=== PATIENT | male | born 1945 | race Caucasian/White ===

== ENCOUNTER 2020-06-22 10:40 | Emergency (ER) | payer MEDICARE, SELFPAY ==
--- NOTE | ~2020-06-22 | XR_ITS ---
EXAMINATION: XR chest 1V portable DATE: 06/22/2020 11:10 INDICATION: Chest pain. TECHNIQUE: A single frontal view of the chest was obtained. COMPARISON: Chest 2 views 10/16/2017, CT abdomen and pelvis 10/16/2017 FINDINGS: Sensitivity is decreased by obesity. Calcified pulmonary nodules and calcified hilar lymph nodes are consistent with old granulomatous disease. No pleural effusion or pneumothorax. Cardiomegal y is noted. There is a prominent left paracardial fat pad. IMPRESSION: 1. Cardiomegaly. Reviewed, dictated and finalized at location A. IMPRESSION: 1. Cardiomegaly.
--- NOTE | 2020-06-22 10:49 | ECG_ITS ---
Measurements Intervals [place] Rate: 116 P: MA: 0 QRS: -39 QRSD: 109 T: 124 QT: 324 QTc: 451 Interpretive Statements ATRIAL FIBRILLATION WITH RAPID VENTRICULAR RESPONSE VENTRICULAR PREMATURE COMPLEXES LEFT AXIS DEVIATION DELAYED PRECORDIAL R/S TRANSITION ST-T WAVE ABNORMALITY IN HIGH LATERAL LEADS- CONSIDER ISCHEMIA BASELINE WANDER- AVR, AVL, AVF ABNORMAL ECG Electronically Signed On 06-22-2020 11:40:29 CDT by Edward Lewis D.O.
[2020-06-22 10:51] VITALS: BP 165/98; PULSE 121; RESP 23; TEMP 36.7; O2SAT 96
--- NOTE | 2020-06-22 10:51 | ED.ARRPALP ---
HPI - Arrhythmia/Palpitations General Chief Complaint: Arrhythmia/Palpitations Stated Complaint: IRREGULAR HEART BEAT Time Seen by Provider: 06/22/20 10:43 Source: RN notes reviewed History of Present Illness HPI narrative: Patient presents emergency department from home for arrhythmia. Patient was being seen by his senior oracle soa developer Dr. Quiroga this morning for a regular checkup when it was noted that his heart rate was irregular and he was referred to the ER for further evaluation. Patient states he cannot feel his heart rate being irregular and denies any chest pain or shortness of breath. He denies any history of atrial fibrillation denies any fevers or chills chest pain shortness of breath abdominal pain or any other symptoms Related Data Home Medications Medication Instructions Recorded Confirmed aspirin 81 mg tablet,delayed 81 mg PO DAILY 12/01/19 release cholecalciferol (vitamin D3) 25 1,000 unit PO DAILY 12/01/19 mcg (1,000 unit) capsule glimepiride 4 mg tablet 4 mg PO QAM tablet 12/01/19 insulin glargine [Lantus Solostar 15 unit SUB-Q QPM 06/22/20 U-100 Insulin] saxagliptin [Onglyza] 2.5 mg PO DAILY 06/22/20 Allergies Allergy/AdvReac Type Severity Reaction Status Date / Time No Known Allergies Allergy Verified 06/22/20 10:55 Review of Systems Review of Systems: Narrative: Gen.: Denies fevers or chills ENT: Denies congestion Respiratory: Denies shortness of breath or cough CV: See HPI GI: Denies abdominal pain nausea, emesis or diarrhea Musculoskeletal: Denies back pain or muscle pain Neuro: Denies numbness, tingling, weakness or focal weakness Skin: Denies rash Except as documented, all other systems reviewed and negative [facility] Past Medical History Medical History (Updated 06/22/20 @ 12:09 by Feliciano Covarrubias DO) Essential (primary) hypertension Type 2 diabetes mellitus without complications Social History Social History Smoking status: Never smoker Second hand tobacco smoke exposure: No Alcohol intake: current Gender identity (if verbalized by the patient): Male Exam Narrative: Exam Narrative: APPEARANCE: No acute distress, nontoxic, resting in bed EYES: EOMI HEENT: Normocephalic, atraumatic, OMM RESPIRATORY: No respiratory distress Clear to auscultation bilaterally with no rhonchi wheezing or rales. CARDIOVASCULAR: Irregular irregular without murmurs rubs or gallops. ABDOMINAL: Soft, nontender, nondistended, no rebound or guarding MUSCULOSKELETAl: Moves all extremities. No clubbing, cyanosis or edema. NEURO: Awake and alert. Following commands, speech normal, no focal deficits SKIN:: Warm, dry. No rashes lesions or abrasions PSYCHIATRIC: Normal affect/mood, Course Course Emergency Course: Patient is remained rate controlled in the ED. Currently is on metoprolol daily Called and discussed with Dr Mckeon presentation work-up. Request patient be started on Eliquis 2.5 mg twice daily agrees with plan for discharge with follow-up as an outpatient Discussed with Dr. Quiroga presentation work-up. States creatinine is at baseline increased plan to discharge Discussed with patient results of workup and diagnosis. Discussed need for follow-up with primary care, proper use of medication, and reasons to return to the emergency department. Patient understands and agrees to current treatment plan Vital Signs Vital signs: Vital Signs Temperature 98.1 F 06/22/20 10:51 Pulse Rate 121 H 06/22/20 10:51 Respiratory Rate 23 H 06/22/20 10:51 Blood Pressure 165/98 H 06/22/20 10:51 Pulse Oximetry 96 06/22/20 10:51 Temperature 98.1 F 06/22/20 10:51 Pulse Rate 121 H 06/22/20 10:51 Respiratory Rate 23 H 06/22/20 10:51 Blood Pressure 165/98 H 06/22/20 10:51 Pulse Oximetry 96 06/22/20 10:51 MDM - Arrhythmia/Palpitations Lab Data Result diagrams: 06/22/20 10:55 06/22/20 10:55
[2020-06-22 11:03] LABS: Basophils Absolute Auto 0.1 K/mm3 (0.0-0.1); Basophils Percent Auto 0.6 % (0.2-1.2); Eosinophils Absolute Auto 0.2 K/mm3 (0-0.3); Eosinophils Percent Auto 2.3 % (0-4.4); Hematocrit 35.5 % (42.0-52.0); Immature Granulocyte Absolute 0.03 K/mm3 (0.00-0.031); Immature Granulocyte Percent A 0.4 % (0-0.5); Lymphocytes Absolute Auto 1.27 K/mm3 (0.9-3.2); Lymphocytes Percent Auto 14.8 % (18.3-44.2); Mean Corpuscular HGB Conc 33.8 g/dl (32-36); Mean Corpuscular Hemoglobin 34.4 pg (26-34); Mean Corpuscular Volume 101.7 fl (80-100); Mean Platelet Volume 10.9 fl (7.4-10.4); Monocytes Absolute Auto 0.6 K/mm3 (0.1-0.6); Monocytes Percent Auto 7.1 % (2.6-8.5); Neutrophils Absolute Auto 6.4 K/mm3 (1.3-6.7); Neutrophils Percent Auto 74.8 % (45.5-73.1); Platelet Count Result 176 k/mm3 (150-375); Red Blood Count 3.49 M/mm3 (4.6-6.20); Red Cell Distribution Width 12.2 % (11.5-14.5); White Blood Count 8.6 K/mm3 (4.5-10.0)
[2020-06-22 11:14] LABS: Anion Gap 10 mmol/L (8-16); Blood Urea Nitrogen 49 mg/dL (9-20); Calcium 8.1 mg/dL (8.4-10.2); Carbon Dioxide 23 mmol/L (22-30); Chloride 103 mmol/L (98-107); Estimated CRCL calculation 31 ml/min; Estimated Glomerular Filt Rate 21; Glucose 288 mg/dL (75-110); INR 1.1; Potassium 4.7 mmol/L (3.4-5.0); Prothrombin Time 13.7 Seconds (11.1-14.7); Sodium 136 mmol/L (137-145)
[2020-06-22 11:15] LABS: Partial Thromboplastin Time 26.4 SECONDS (22.3-36.8)
[2020-06-22 11:25] LABS: Troponin I 0.017 ng/mL (0.000-0.034)
[2020-06-22 12:00] VITALS: BP 158/89; PULSE 86; RESP 17; TEMP 36.7; O2SAT 97
[2020-06-22] MEDS: APIXABAN 2.5 MG TABLET PO (12:14)
== END 2020-06-22 12:20 | disposition home or self-care (01) ==
PROVIDERS: Emergency Provider Emergency Medicine; PCP Internal Medicine
DX: I48.91 Unspecified atrial fibrillation (principal); I10 Essential (primary) hypertension; E11.9 Type 2 diabetes mellitus without complications; Z79.84 Long term (current) use of oral hypoglycemic drugs; Z79.4 Long term (current) use of insulin; Z79.82 Long term (current) use of aspirin
CPT/HCPCS: 36415; 71045; 80048; 84484; 85025; 85610; 85730; 93005; 99284; A9270

== ENCOUNTER 2021-12-12 13:53 | Outpatient (CLI) | payer MEDICARE, SELFPAY ==
--- NOTE | ~2021-12-12 | XR_ITS ---
XR foot LT min 3V 12/12/2021 14:16 Indication: Disorder of pigmentation. Left foot pain. Procedure: 4 views left foot Comparison: No prior studies for comparison. Findings: There is a healed fifth metatarsal fracture. Lisfranc joint intact. There is mild polyartic ular osteoarthritis. Osteopenia. Extensive vascular calcifications are present. Lisfranc joint intact . There are erosions along the medial margins of the second, third and fourth metatarsal heads, suspi cious for inflammatory arthropathy. Impression: 1: Erosive changes of the second, third and fourth metatarsal heads, suspicious for inflammatory arth ropathy. 2: Healed fifth metatarsal fracture. 3: Atherosclerosis. 4: Mild polyarticular osteoarthritis. Reviewed, dictated and finalized at location B. OCKER Impression: 1: Erosive changes of the second, third and fourth metatarsal heads, suspicious for inflammatory arthropathy. 2: Healed fifth metatarsal fracture. 3: Atherosclerosis. 4: Mild polyarticular osteoarthritis.
== END 2021-12-12 13:54 | disposition home or self-care (01) ==
PROVIDERS: PCP Internal Medicine; Visit Provider Physician Assistant
DX: L81.9 Disorder of pigmentation, unspecified (principal); M19.072 Primary osteoarthritis, left ankle and foot; I73.9 Peripheral vascular disease, unspecified
CPT/HCPCS: 73630

== ENCOUNTER 2021-12-20 08:01 | Outpatient (CLI) | payer MEDICARE, SELFPAY ==
--- NOTE | ~2021-12-20 | US_ITS ---
EXAMINATION: US art doppler w yolanda MAYO EXAM DATE: 12/20/2021 08:48 INDICATION: PAD TECHNIQUE: Segmental pressures and plethysmographic and Doppler waveforms of the brachial and lower e xtremity arteries were obtained. There is no prior study for comparison. FINDINGS: Right and left brachial artery pressures of 178 mm Hg and 164 mm Hg, respectively, are concordant (no rmal difference <= 30 mmHg). RIGHT LEG: The ankle-brachial index (BOBBY) is could not obtain (normal >= 0.9-1). The great toe-brachial index (TBI) is 0.40 (normal >= 0.65). The lower extremity ratios, segmental pressure gradients as follows; Dorsalis pedis: Could not obtain ( mmHg). Posterior tibial: Could not obtain ( mmHg). (Normal gradients <= 20-30 mmHg between adjacent levels on the same leg or the same levels on the two legs). Arterial waveforms are monophasic. LEFT LEG: The ankle-brachial index (BOBBY) is could not obtain (normal >= 0.9-1). The great toe-brachial index (TBI) is 0.46 (normal >= 0.65). The lower extremity ratios, segmental pressure gradients as follows; Dorsalis pedis: Could not obtain ( mmHg). Posterior tibial: Could not obtain ( mmHg). (Normal gradients <= 20-30 mmHg between adjacent levels on the same leg or the same levels on the two legs). Arterial waveforms are monophasic. IMPRESSION: 1. Hypertension, could not cuff occlude arteries, could not obtain ankle brachial indices. Monophasi c waveforms. 2. Moderately decreased toe brachial indices bilaterally. Reviewed, dictated and finalized at location B. TERINTELLIGENCE ANALYST IMPRESSION: 1. Hypertension, could not cuff occlude arteries, could not obtain ankle brach ial indices. Monophasic waveforms. 2. Moderately decreased toe brachial indices bilaterally.
== END 2021-12-20 08:02 | disposition home or self-care (01) ==
PROVIDERS: PCP Internal Medicine; Visit Provider Podiatrist Foot & Ankle Surgery
DX: I73.9 Peripheral vascular disease, unspecified (principal); I10 Essential (primary) hypertension
CPT/HCPCS: 93923

== ENCOUNTER 2022-08-05 16:46 | Observation (INO) | payer MEDICARE, SELFPAY ==
[2022-08-05] VITALS (19 sets, daily range): BP systolic 114–144; BP diastolic 56–83; PULSE 58–96; RESP 18–22; TEMP 36.3–36.6; O2SAT 94–100; BMI 45.0
--- NOTE | ~2022-08-05 | US_ITS ---
EXAMINATION: US renal BI DATE: 08/07/2022 12:00 INDICATION: Elevated creatinine. TECHNIQUE: Multiple ultrasound grayscale images of the kidneys were obtained. COMPARISON: CT abdomen and pelvis 10/16/2017 FINDINGS: Sensitivity is decreased by obesity. The right kidney measures 10.0 x 4.6 x 5.1 cm. The left kidney m easures 11.4 x 5.4 x 5.6 cm. The kidneys demonstrate normal parenchymal echogenicity. There is no hyd ronephrosis. The bladder is normal. IMPRESSION: 1. Normal kidney sizes. No hydronephrosis. Reviewed, dictated and finalized at location B.
--- NOTE | ~2022-08-05 | US_ITS ---
EXAMINATION: US venous doppler [facility] DATE: 08/06/2022 11:09 INDICATION: Asymmetric left lower limb swelling TECHNIQUE: Grayscale ultrasound images without and with compression and Doppler ultrasound images of the left lower extremity veins were obtained. COMPARISON: None. FINDINGS: The visualized portions of left common femoral vein, profunda (deep) femoral vein, femoral vein, popl iteal vein, peroneal veins, posterior tibial veins, gastrocnemius vein and greater saphenous vein out flow are patent. IMPRESSION: 1. No deep venous thrombosis in the left lower limb. Reviewed, dictated and finalized at location A.
--- NOTE | ~2022-08-05 | XR_ITS ---
EXAMINATION: XR chest 2V Exam Date/Time: 08/05/2022 17:23 CDT HISTORY: SOB UPON EXERTION, BLOOD SUGAR IN THE 400 RANGE Comparison: 06/22/2020. RESULT: Lines, tubes, and devices: None. Lungs and pleura: Linear and subsegmental right basilar opacities. Right costophrenic angle blunting . Multiple calcified bilateral granulomas. Cardiomediastinal silhouette: Stable cardiomegaly. Calcified hilar nodes. Other: No acute osseous or upper abdominal finding. IMPRESSION: Atelectasis/consolidation in the right lung base. Small right pleural effusion. Cardiomegaly. Reviewed, dictated and finalized at location K.
--- NOTE | 2022-08-05 16:56 | ECG_ITS ---
Measurements Intervals [place] Rate: 92 P: MA: 0 QRS: -40 QRSD: 122 T: 149 QT: 380 QTc: 471 Interpretive Statements ATRIAL FIBRILLATION MARKED LEFT AXIS DEVIATION [QRS AXIS < -30] LEFT BUNDLE BRANCH BLOCK [120+ ms QRS DURATION, 80+ ms Q/S IN V1/V2, 85+ ms R IN I/aVL/V5/V6] ABNORMAL EKG Electronically Signed On 08-06-2022 9:25:17 CDT by John Hart M.D.
[2022-08-05 17:12] LABS: Basophils Percent Auto 0.4 % (0.2-1.2); Eosinophils Percent Auto 0.1 % (0-4.4); Hematocrit 24.6 % (42.0-52.0); Hemoglobin 7.8 g/dL (14.0-18.0); Immature Granulocyte Absolute 0.06 K/mm3 (0.00-0.031); Immature Granulocyte Percent A 0.8 % (0-0.5); Lymphocytes Absolute Auto 0.47 K/mm3 (0.9-3.2); Lymphocytes Percent Auto 6.1 % (18.3-44.2); Mean Corpuscular HGB Conc 31.7 g/dl (32-36); Mean Corpuscular Hemoglobin 34.8 pg (26-34); Mean Corpuscular Volume 109.8 fl (80-100); Mean Platelet Volume 11.3 fl (7.4-10.4); Monocytes Absolute Auto 0.6 K/mm3 (0.1-0.6); Monocytes Percent Auto 8.1 % (2.6-8.5); Neutrophils Absolute Auto 6.5 K/mm3 (1.3-6.7); Neutrophils Percent Auto 84.5 % (45.5-73.1); Platelet Count Result 165 k/mm3 (150-375); Red Blood Count 2.24 M/mm3 (4.6-6.20); Red Cell Distribution Width 13.8 % (11.5-14.5); White Blood Count 7.7 K/mm3 (4.5-10.0)
[2022-08-05 17:22] LABS: Alanine Aminotransferase 28 U/L (6-50); Albumin Level 3.9 g/dL (3.5-5.1); Alkaline Phosphatase 84 U/L (38-126); Anion Gap 13 mmol/L (8-16); Aspartate Amino Transferase 28 U/L (17-59); Bilirubin,Total 0.9 mg/dL (0.2-1.3); Blood Urea Nitrogen 99 mg/dL (9-20); Carbon Dioxide 21 mmol/L (22-30); Chloride 100 mmol/L (98-107); Estimated CRCL calculation 15 ml/min; Estimated Glomerular Filt Rate 16; Glucose 380 mg/dL (65-110); Potassium 4.5 mmol/L (3.4-5.0); Sodium 134 mmol/L (137-145)
[2022-08-05 17:44] LABS: Anisocytosis 1+ (NORMAL); Hypochromasia 1+ (NORMAL); Platelet Estimate Adequate (Adequate); Schistocytes None Seen (NORMAL)
--- NOTE | 2022-08-05 19:19 | ED.SOB ---
HPI - SOB/Dyspnea General Chief Complaint: Shortness of Breath/Dyspnea Stated Complaint: SOB, hypergylcemia Time Seen by Provider: 08/05/22 18:59 History of Present Illness HPI Narrative: Patient is a 76-year-old male with a history of CKD, CAD, PVD, diabetes, afib presenting with weakness and shortness of breath. Patient states that he has been generally weak ever since having a toe amputated last spring. States that he has been trying to increase his activity but over the last several days he has felt increasingly weak and short of breath. States he is also been coughing. They tested for COVID at home which was negative. Patient denies focal numbness or weakness, headache, fevers, chest pain, abdominal pain, vomiting, diarrhea, dysuria. States that he has had several dark stools over the last week. States its been many years since he had a colonoscopy. Related Data Home Medications Medication Instructions Recorded Confirmed aspirin 81 mg tablet,delayed 81 mg PO DAILY 12/01/19 08/08/22 release (Adult Low Dose Aspirin) cholecalciferol (vitamin D3) 25 1,000 unit PO DAILY 12/01/19 08/08/22 mcg (1,000 unit) capsule clindamycin HCl 300 mg capsule 300 mg PO TID 08/05/22 08/08/22 collagenase clostridium histo. 250 1 applic topical DAILY 08/05/22 08/08/22 unit/gram topical ointment (Santyl) insulin aspar prot-insulin aspart 20 unit subcut QAM 08/05/22 08/08/22 100 unit/mL (70-30) subcutaneous pen (Novolog Mix 70-30FlexPen U-100) Allergies Allergy/AdvReac Type Severity Reaction Status Date / Time No Known Allergies Allergy Verified 08/08/22 08:41 Review of Systems Review of Systems: All systems reviewed & are unremarkable except as noted in HPI and below [facility] Past Medical History Medical History (Updated 08/10/22 @ 14:09 by Nadia Cueva MD) Actinic keratosis of multiple sites of head and neck Allergic rhinitis, unspecified Amputation of left great toe Anemia of chronic disease B12 deficiency Body mass index (BMI) 35 or more (08/27/17) Cardiac murmur CHF (congestive heart failure) Echocardiogram 07/2020: [id number] increased left ventricular wall thickness, left ventricular ejection fraction 40-50%, indeterminate diastolic function due to AFib, mild-moderate left atrial dilatation, mild tricuspid regurgitation, mild pulmonary hypertension Chronic anticoagulation Chronic atrial fibrillation Dr. Mckeon CKD (chronic kidney disease) stage 4, GFR 15-29 ml/min Due to diabetes and hypertension managed by Dr. Ted Quiroga Coronary artery disease Diabetic peripheral neuropathy Diabetic retinopathy Mild nonproliferative of retinopathy with history of laser surgery left eye Dyspnea Essential (primary) hypertension Gangrene of toe of left foot (~11/2021) Gout Hearing loss Macular scar of right eye With gill net stringer stating cataract surgery would not help patient's vision due to macular scar Obesity, morbid, BMI 40.0-49.9 KENNEDY (obstructive sleep apnea) Peripheral artery disease Positive cardiac stress test 06/2020 with ischemia to the anterior area demonstrate EF of 42%. Left heart catheterization not performed due to chronic kidney disease. Renal osteodystrophy Secondary hyperparathyroidism (of renal origin) With mildly elevated PTH Spinal stenosis Type 2 diabetes mellitus Improved to an A1c of 7.4% March 2022 Vitamin D deficiency Surgical History Surgical History (Updated 08/07/22 @ 19:34 by Jorge Luis Mhaoney MD) Amputated toe Left 1st toe amputation and left 3rd and 4th toe ulcer debridement 02/2022 History of angioplasty of peripheral vessel (~02/2022) With stent in the left superficial femoral artery performed by Dr. Meadows History of left cataract extraction History of surgical procedure on eye proper using laser Normal colonoscopy Demonstrating internal hemorrhoids. Performed by Dr. Morgan August 2013 Family History Family History (Reviewed 08/07/22 @ 08:38 by Jimmy
[2022-08-05] MEDS: SODIUM CHLORIDE 0.9% IV 500 ML 999 ML IV CONT (20:39)
--- NOTE | 2022-08-05 20:54 | PM.IMHP ---
H&P: HPI History of Present Illness Date/Time: 08/05/22 20:54 Chief Complaint: Generalized weakness, high blood sugars Narrative: 76-year-old male with past medical history of peripheral artery disease status post toe amputations, insulin-dependent diabetes mellitus, chronic kidney disease stage 4 and chronic atrial fibrillation on Eliquis who presented to the ER via private vehicle due to high blood sugars and generalized weakness. The patient reports that he has been having generalized weakness for months but it may be a little bit worse this past week. He actually states that his most significant change in complaints is new dyspnea on exertion for the last week. He denies any chest pain or palpitations. He has not noticed any increased lower extremity swelling but he always has some degree of lower extremity swelling left greater than right. He did have recent superficial femoral artery angioplasty with stent placement and amputation of his left great toe with debridement of other total wounds. The wound did dehisce but the wound is healing. He has no increased warmth fever or induration of the foot. He denies any nausea or vomiting. He reports that he occasionally has some heartburn. He reports that he pees quite frequently and gets up at least a couple of times a night (if not more) to urinate. He denies sensation of incomplete bladder emptying, dysuria, weak urine stream or hesitancy. He denies history of BPH and states that his last PSA was normal. He reports that he has been coughing since he got to the hospital but was not coughing before. He reports he is short of breath even going the 10 ft to the bathroom. He has been compliant with his Lasix Eliquis Cardizem and metoprolol. He reports that he has been constipated recently and has been taking some Senokot gummies. He reports he did have bowel movements after the gummies by but several of the stools were quite dark. He denies any obvious hematochezia. His Hemoccult stool in the ER was positive. In the ER CBC demonstrated drop in hemoglobin from 9.8 down to 7.8 since March. He did not realize that there was a significant amount of sugar in the Senokot gummies and subsequently noticed increased glucoses. He has been compliant with his home insulin therapy. He takes 70 30 insulin once a day and it looks like he also has some sliding scale insulin available. He has chronic kidney disease stage [address] Ted Quiroga recently suggested the patient be evaluated for placement of an AV fistula. The patient has not done this as he was hoping to never have hemodialysis. He denies any ill contacts and has been afebrile. 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 He reports that he was so weak earlier this week that he could not climb into his tractor and ended up leaving his tractor where it sat. Review of Systems Review of Systems: 12 systems were reviewed with pertinent positives and negatives per HPI. Except as documented in the HPI, all other systems were reviewed and are negative. [facility] Past Medical History Medical History (Updated 08/05/22 @ 22:19 by Norma Hanna DO) Actinic keratosis of multiple sites of head and neck Allergic rhinitis, unspecified Amputation of left great toe Anemia of chronic disease B12 deficiency Body mass index (BMI) 35 or more (08/27/17) Cardiac murmur CHF (congestive heart failure) Echocardiogram 07/2020: [id number] increased left ventricular wall thickness, left ventricular ejection fraction 40-50%, indeterminate diastolic function due to AFib, mild-moderate left atrial dilatation, mild tricuspid regurgitation, mild pulmonary hypertension Chronic anticoagulation Chronic atrial fibrillation Dr. Mckeon CKD (chronic kidney disease) stage 4, GFR 15-29 ml/min Due to diabetes and hypertension managed by Dr. Ted Quiroga Diabetic peripher
[2022-08-05] MEDS: INSULIN ASPART (*BKC) 100 UNITS/ML 6 UNITS SUB-Q (21:01)
[2022-08-05 21:11] LABS: Hematocrit 23.6 % (42.0-52.0); Hemoglobin 7.6 g/dL (14.0-18.0)
[2022-08-05] MEDS: PANTOPRAZOLE SODIUM IV 40 MG VIAL IV PUSH (21:14)
[2022-08-05 21:48] LABS: Influenza A QL RT-PCR Negative (Negative); Influenza B QL RT-PCR Negative (Negative); SARS-CoV-2 RNA PCR Negative
--- NOTE | 2022-08-05 21:57 | ADMGEN ---
This patient, Humberto Stallings, was admitted to Medical Room 240-01. Patient/family oriented to hospital policies and general routines including ID bracelet, bed and alarms, visiting hours, pain management, procedures, bathroom and other care routines, personal items, smoking policy, room service/diet, and visiting hours. Information on how to activate the Rapid Response Team has been discussed. Patient/Family are encouraged to report perceived risks to care and to ask questions if they do not understand what they are told or what they should do.
[2022-08-06] VITALS (18 sets, daily range): BP systolic 115–127; BP diastolic 60–76; PULSE 60–101; RESP 16–18; TEMP 36.6–37.1; O2SAT 91–100
--- NOTE | 2022-08-06 | ECHO_ITS ---
Patient Info Name: Humberto Stallings Age: 76 years : 1945 Gender: Male Ht: 72 in Wt: 331 lbs BSA: 2.83 m2 HR: 82 bpm BP: 117 / 63 mmHg Heart Rhythm: Atrial Fibrillation Technical Quality: Good Exam Date: 08/06/2022 10:24 AM Exam Location: [facility] Pulmonary Exam Room: [facility] Patient Status: Inpatient Admit Date: 08/05/2022 Staff Ordering Physician: Norma Hanna DO Supply Chain Logistics Manager: Nisa Gomes RDCS Attending Provider: Norma Hanna DO Referring Physician: Jacques JAUREGUI; Exam Type: CA echo doppler color flow Study Info Indications - boyce Complete two-dimensional, color flow and Doppler transthoracic echocardiogram is performed. Summary 1. Complete two-dimensional, color flow and Doppler transthoracic echocardiogram is performed. 2. Left ventricular chamber dimension is moderately enlarged. 3. Left ventricular systolic function is severely reduced, estimated at 30-35%. 4. There is mildly increased left ventricular wall thickness. 5. The left ventricular diastolic function is abnormal. 6. E/e' 18 is elevated. 7. Atrial fibrillation. 8. Left atrial chamber dimension is severely enlarged. 9. Right atrial chamber dimension is moderately enlarged. 10. There is trace aortic valve regurgitation. 11. The mitral valve has mildly calcified annulus. 12. There is moderate mitral valve regurgitation. 13. There is mild to moderate tricuspid valve regurgitation. 14. Severe pulmonary hypertension, estimated pulmonary arterial systolic pressure is 68 mmHg. 15. Dilated inferior vena cava with >50% collapse upon inspiration consistent with elevated right atrial pressure, 10 mmHg. Left Ventricle E/e' 18 is elevated. Atrial fibrillation. Left ventricular chamber dimension is moderately enlarged. Left ventricular systolic function is severely reduced, estimated at 30-35%. There is mildly increased left ventricular wall thickness. The left ventricular diastolic function is abnormal. Right Ventricle Right ventricular systolic function is normal and with normal TAPSE 2.1 cm. Right ventricular chamber dimension is normal. Left Atria Left atrial chamber dimension is severely enlarged. Right Atria Right atrial chamber dimension is moderately enlarged. Aortic Valve The aortic valve is trileaflet. There is no aortic valve stenosis. There is trace aortic valve regurgitation. Pulmonic Valve There is no pulmonic regurgitation. Mitral Valve The mitral valve has mildly calcified annulus. There is no mitral valve stenosis. There is moderate mitral valve regurgitation. Tricuspid Valve There is mild to moderate tricuspid valve regurgitation. Severe pulmonary hypertension, estimated pulmonary arterial systolic pressure is 68 mmHg. Pericardium/Pleural There is no pericardial effusion. Inferior Vena Cava Dilated inferior vena cava with >50% collapse upon inspiration consistent with elevated right atrial pressure, 10 mmHg. Aorta The aortic root size at the sinus of Valsalva is normal. Left Ventricular Outflow Tract Name Value Normal LVOT 2D LVOT Diameter 2.1 cm LVOT Doppler L
[2022-08-06] MEDS: SODIUM CHLORIDE 0.9% IV 250 ML 30 ML IV CONT (01:45)
[2022-08-06] MEDS: WATER FOR IRRIGATION, STERILE 1,000 ML BOTTLE 1000 ML (01:45)
[2022-08-06 05:16] LABS: Glucose Point of Care 149 mg/dl (65-105)
--- NOTE | 2022-08-06 07:02 | WPDGICN ---
Assessment and Plan Assessment and plan (1) Blood loss anemia: Code(s): D50.0 - Iron deficiency anemia secondary to blood loss (chronic) Status: Acute Assessment and Plan: his hemoglobin has dropped from 12 2 years ago to 9.8 this summer and now 7.6. He does not see blood in his stools except on occasion when he is constipated and might strain. His last colonoscopy was about 9 years ago Because he had Eliquis yesterday morning, will prep him tomorrow for colonoscopy to be done on Saturday morning. (2) Chronic atrial fibrillation: Code(s): I48.20 - Chronic atrial fibrillation, unspecified Status: Acute Assessment and Plan: He has been maintained on Eliquis. EKG shows atrial fibrillation with a rate of 92 (3) Diabetes mellitus with hyperglycemia, with long-term current use of insulin: Qualifiers: Diabetes mellitus type: type 2 Qualified Code(s): E11.65 - Type 2 diabetes mellitus with hyperglycemia; Z79.4 - assisted (current) use of insulin Code(s): E11.65 - Type 2 diabetes mellitus with hyperglycemia; Z79.4 - intermediate card tender (current) use of insulin Status: Acute Assessment and Plan: he takes NovoLog 70/32 units every morning (4) Chronic anticoagulation: Code(s): Z79.01 - intermediate card tender (current) use of anticoagulants Status: Acute Assessment and Plan: due to the fact that he took Eliquis yesterday, we will plan on doing a colonoscopy on Saturday. Therefore I will let him have diabetic diet today (5) CKD (chronic kidney disease) stage 4, GFR 15-29 ml/min: Code(s): N18.4 - Chronic kidney disease, stage 4 (severe) Status: Acute Assessment and Plan: is followed by Dr. Ted Quiroga. (6) KENNEDY (obstructive sleep apnea): Code(s): G47.33 - Obstructive sleep apnea (adult) (pediatric) Status: Acute Assessment and Plan: He has a CPAP at home. GI Consult Note Consult date/time: 08/06/22 07:02 HPI: Humberto Stallings is a 76 year old male was had gradually dropping blood counts for the past 2 years, is hemoglobin being 12 2 years ago and 9.8 a couple months ago. Now it is subtly down 7.6. He does not see gross evidence of bleeding. He is chronically anticoagulated on Eliquis for atrial fibrillation. He also has chronic kidney disease stage 4, is dependent diabetes mellitus and peripheral vascular disease for which she has had toe amputations. The patient's main complaint is that he has been severely weak lately and short of breath even walking just 10 ft to the bathroom. He has had some issues lately with constipation but Senokot gummies have helped with that. He was found have a positive stool Hemoccult in the emergency room. Review of Systems Review of Systems: All systems reviewed & are unremarkable except as noted in HPI and below [facility] Past Medical History Medical History Actinic keratosis of multiple sites of head and neck Allergic rhinitis, unspecified Amputation of left great toe Anemia of chronic disease B12 deficiency Body mass index (BMI) 35 or more (08/27/17) Cardiac murmur CHF (congestive heart failure) Echocardiogram 07/2020: [id number] increased left ventricular wall thickness, left ventricular ejection fraction 40-50%, indeterminate diastolic function due to AFib, mild-moderate left atrial dilatation, mild tricuspid regurgitation, mild pulmonary hypertension Chronic anticoagulation Chronic atrial fibrillation Dr. Mckeon CKD (chronic kidney disease) stage 4, GFR 15-29 ml/min Due to diabetes and hypertension managed by Dr. Ted Quiroga Diabetic peripheral neuropathy Diabetic retinopathy Mild nonproliferative of retinopathy with history of laser surgery left eye Essential (primary) hypertension Gangrene of toe of left foot (~11/2021) Gout Hearing loss Macular scar of right eye With printing roller polisher stating cataract marlow
[2022-08-06 08:37] LABS: Hematocrit 26.1 % (42.0-52.0); Hemoglobin 8.3 g/dL (14.0-18.0); Mean Corpuscular HGB Conc 31.8 g/dl (32-36); Mean Corpuscular Hemoglobin 34.4 pg (26-34); Mean Corpuscular Volume 108.3 fl (80-100); Mean Platelet Volume 11.6 fl (7.4-10.4); Platelet Count Result 154 k/mm3 (150-375); Red Blood Count 2.41 M/mm3 (4.6-6.20); Red Cell Distribution Width 14.1 % (11.5-14.5); White Blood Count 7.5 K/mm3 (4.5-10.0)
[2022-08-06] MEDS: CHOLECALCIFEROL 1,000 UNITS TABLET 1000 UNITS PO (08:43)
[2022-08-06] MEDS: COLLAGENASE OINT 30 GM TUBE 1 APPLIC TOPICAL (08:43)
[2022-08-06] MEDS: ASPIRIN 81 MG ENTERIC TABLET PO (08:43)
[2022-08-06] MEDS: ATORVASTATIN 10 MG TABLET PO (08:43)
[2022-08-06] MEDS: FUROSEMIDE INJ 40 MG/4 ML VIAL IV PUSH (08:44)
[2022-08-06] MEDS: PANTOPRAZOLE SODIUM IV 40 MG VIAL IV PUSH ×2 (08:44→20:08)
[2022-08-06] MEDS: METOPROLOL SUCCINATE EXT REL 100 MG TABCR PO (08:44)
[2022-08-06 08:45] LABS: Anion Gap 15 mmol/L (8-16); Blood Urea Nitrogen 91 mg/dL (9-20); Calcium 7.9 mg/dL (8.4-10.2); Carbon Dioxide 22 mmol/L (22-30); Chloride 102 mmol/L (98-107); Estimated CRCL calculation 24 ml/min; Estimated Glomerular Filt Rate 16; Glucose 165 mg/dL (65-110); Magnesium 2.4 mg/dL (1.6-2.3); Phosphorus 4.6 mg/dL (2.5-4.5); Potassium 3.5 mmol/L (3.4-5.0); Sodium 139 mmol/L (137-145)
--- NOTE | 2022-08-06 12:00 | PM.IMPN ---
Progress Note: A&P Assessment and Plan (1) Acute GI hemorrhage: Code(s): K92.2 - Gastrointestinal hemorrhage, unspecified Status: Acute Assessment and Plan: Patient does have acute on chronic anemia Current H/H is 8.3/26.1. Occult blood was positive Eliquis is on hold Trend H/H Q6H GI consulted thank you Protonix 40mg PO Q12H Colonoscopy scheduled for Saturday (2) Chronic anticoagulation: Code(s): Z79.01 - termite technician (current) use of anticoagulants Status: Acute Assessment and Plan: Eliquis on hold due to acute GI bleed. Seems to be on this for a fib (3) Acute on chronic anemia: Code(s): D64.9 - Anemia, unspecified Status: Acute Assessment and Plan: Current H/H is 8.3/26.1 Seems to be a combination of acute on chronic anemia of chronic disease and acute blood loss Will get anemia labs in the am Trend H/H transfuse as indicated Occult was positive Consider Consulting hematology (4) KENNEDY (obstructive sleep apnea): Code(s): G47.33 - Obstructive sleep apnea (adult) (pediatric) Status: Acute Assessment and Plan: Auto titrating CPAP has been ordered. (5) Diabetes mellitus with hyperglycemia, with long-term current use of insulin: Qualifiers: Diabetes mellitus type: type 2 Qualified Code(s): E11.65 - Type 2 diabetes mellitus with hyperglycemia; Z79.4 - [facility] (current) use of insulin Code(s): E11.65 - Type 2 diabetes mellitus with hyperglycemia; Z79.4 - termite technician (current) use of insulin Status: Acute Assessment and Plan: Patient was hyperglycemic. He received 6 units subQ insulin due to glucoses of [address] ER[address] Will [address] patient on moderate sliding scale insulin with Accu-Cheks q.6 hours while NPO. Hypoglycemia protocol has been ordered. Curretn glucose is 165 The patient is only on sliding scale insulin at home. (6) Chronic atrial fibrillation: Code(s): I48.20 - Chronic atrial fibrillation, unspecified Status: Acute Assessment and Plan: Currently rate controlled. Will continue home Cardizem and metoprolol. Eliquis is on hold. (7) Wound of foot: Code(s): S91.309A - Unspecified open wound, unspecified foot, initial encounter Status: Acute Assessment and Plan: Continue localized wound care. Wound does not appear to be infected. Patient does not have leukocytosis or evidence of infection. (8) CKD (chronic kidney disease) stage 4, GFR 15-29 ml/min: Code(s): N18.4 - Chronic kidney disease, stage 4 (severe) Status: Acute Assessment and Plan: Nephrology appointment in March it was suggested that the patient get a fistula placed soon as he is likely to need dialysis. Has a vsular appointment on the Current BUN/Cr is 91/3.70 Trend urine output Avoid nephrotoxic medications Trend labs Adjust therapy as indicated Time Spent With Patient Time with patient: Greater than 35 minutes Subjective Date/time seen: 08/06/22 12:00 Interval history: 08/06/22 1200 Patient is doing ok. He is still very weak . H/H labs are stable at this time. He denies any chest pain, nausea, vomiting, diarrhea, or constipation. He did state that he is short of breath, however, he stated that he feels that is at its baseline. He was doing well with eating, and is walking back and forth to the bathroom. 08/05/22? 20:54 76-year-old male with past medical history of peripheral artery disease status post toe amputations, insulin-dependent diabetes mellitus, chronic kidney disease stage 4 and chronic atrial fibrillation on Eliquis who presented to the ER via private vehicle due to high blood sugars and generalized weakness.? The patient reports that he has been having generalized weakness for months but it may be a little bit worse this past week
--- NOTE | 2022-08-06 12:00 | P.PNIM_ITS ---
Progress Note: A&P Assessment and Plan (1) Acute GI hemorrhage: Code(s): K92.2 - Gastrointestinal hemorrhage, unspecified Status: Acute Assessment and Plan: * Patient does have acute on chronic anemia * Current H/H is 8.3/26.1. * Occult blood was positive * Eliquis is on hold * Trend H/H Q6H * GI consulted thank you * Protonix 40mg PO Q12H * Colonoscopy scheduled for Saturday (2) Chronic anticoagulation: Code(s): Z79.01 - ferry terminal agent (current) use of anticoagulants Status: Acute Assessment and Plan: * Eliquis on hold due to acute GI bleed. * Seems to be on this for a fib (3) Acute on chronic anemia: Code(s): D64.9 - Anemia, unspecified Status: Acute Assessment and Plan: * Current H/H is 8.3/26.1 * Seems to be a combination of acute on chronic anemia of chronic disease and acute blood loss * Will get anemia labs in the am * Trend H/H * transfuse as indicated * Occult was positive * Consider Consulting hematology (4) KENNEDY (obstructive sleep apnea): Code(s): G47.33 - Obstructive sleep apnea (adult) (pediatric) Status: Acute Assessment and Plan: Auto titrating CPAP has been ordered. (5) Diabetes mellitus with hyperglycemia, with long-term current use of insulin: Qualifiers: Diabetes mellitus type: type 2 Qualified Code(s): E11.65 - Type 2 diabetes mellitus with hyperglycemia; Z79.4 - intermediate (current) use of insulin Code(s): E11.65 - Type 2 diabetes mellitus with hyperglycemia; Z79.4 - ferry terminal agent (current) use of insulin Status: Acute Assessment and Plan: * Patient was hyperglycemic. He received 6 units subQ insulin due to glucoses of 380 in the ER. * Will place patient on moderate sliding scale insulin with Accu-Cheks q.6 hours while NPO. * Hypoglycemia protocol has been ordered. * Curretn glucose is 165 The patient is only on sliding scale insulin at home. (6) Chronic atrial fibrillation: Code(s): I48.20 - Chronic atrial fibrillation, unspecified Status: Acute Assessment and Plan: Currently rate controlled. Will continue home Cardizem and metoprolol. Eliquis is on hold. (7) Wound of foot: Code(s): S91.309A - Unspecified open wound, unspecified foot, initial encounter Status: Acute Assessment and Plan: Continue localized wound care. Wound does not appear to be infected. Patient does not have leukocytosis or evidence of infection. (8) CKD (chronic kidney disease) stage 4, GFR 15-29 ml/min: Code(s): N18.4 - Chronic kidney disease, stage 4 (severe) Status: Acute Assessment and Plan: * Nephrology appointment in March it was suggested that the patient get a fistula placed soon as he is likely to need dialysis. * Has a vsular appointment on the * Current BUN/Cr is 91/3.70 * Trend urine output * Avoid nephrotoxic medications * Trend labs * Adjust therapy as indicated Time Spent With Patient Time with patient: Greater than 35 minutes Subjective Date/time seen: 08/06/22 12:00 Interval history: 08/06/22 1200 Patient is doing ok. He is still very weak . H/H labs are stable at this time. He denies any chest pain, nausea, vomiting, diarrhea, or constipation. He did
[2022-08-06] MEDS: INSULIN ASPART (*BKC) 100 UNITS/ML SUB-Q ×2 (12:10→17:27)
[2022-08-06 12:12] LABS: Glucose Point of Care 239 mg/dl (65-105)
[2022-08-06 15:25] LABS: Hematocrit 24.7 % (42.0-52.0); Hemoglobin 8.1 g/dL (14.0-18.0)
[2022-08-06 17:22] LABS: Glucose Point of Care 237 mg/dl (65-105)
[2022-08-06 20:02] LABS: Hematocrit 25.6 % (42.0-52.0); Hemoglobin 8.1 g/dL (14.0-18.0)
[2022-08-07] VITALS (14 sets, daily range): BP systolic 102–118; BP diastolic 60–81; PULSE 74–99; RESP 16; TEMP 36.4–36.6; O2SAT 95–100
[2022-08-07 05:34] LABS: Basophils Percent Auto 0.4 % (0.2-1.2); Eosinophils Absolute Auto 0.2 K/mm3 (0-0.3); Eosinophils Percent Auto 2.5 % (0-4.4); Hematocrit 26.3 % (42.0-52.0); Hemoglobin 8.4 g/dL (14.0-18.0); Immature Granulocyte Absolute 0.06 K/mm3 (0.00-0.031); Immature Granulocyte Percent A 0.8 % (0-0.5); Immature Reticulocyte Fraction 32.3 % (3.0-15.9); Lymphocytes Percent Auto 13.7 % (18.3-44.2); Mean Corpuscular HGB Conc 31.9 g/dl (32-36); Mean Corpuscular Hemoglobin 34.9 pg (26-34); Mean Corpuscular Volume 109.1 fl (80-100); Mean Platelet Volume 11.4 fl (7.4-10.4); Monocytes Absolute Auto 0.6 K/mm3 (0.1-0.6); Monocytes Percent Auto 7.7 % (2.6-8.5); Neutrophils Absolute Auto 5.5 K/mm3 (1.3-6.7); Neutrophils Percent Auto 74.9 % (45.5-73.1); Platelet Count Result 153 k/mm3 (150-375); Red Blood Count 2.41 M/mm3 (4.6-6.20); Red Cell Distribution Width 14.3 % (11.5-14.5); Reticulocyte Hemoglobin Conten 35.8 pg (28.2-35.7); Reticulocyte Percent 4.36 % (0.7-4.3); Reticulocytes Absolute 0.11 B/L (32.2-175.7); White Blood Count 7.3 K/mm3 (4.5-10.0)
[2022-08-07 05:51] LABS: Alanine Aminotransferase 28 U/L (6-50); Albumin Level 3.5 g/dL (3.5-5.1); Alkaline Phosphatase 81 U/L (38-126); Anion Gap 12 mmol/L (8-16); Aspartate Amino Transferase 25 U/L (17-59); Bilirubin,Total 1.2 mg/dL (0.2-1.3); Blood Urea Nitrogen 96 mg/dL (9-20); Carbon Dioxide 22 mmol/L (22-30); Chloride 105 mmol/L (98-107); Estimated CRCL calculation 22 ml/min; Estimated Glomerular Filt Rate 14; Glucose 111 mg/dL (65-110); Magnesium 2.6 mg/dL (1.6-2.3); Potassium 4.2 mmol/L (3.4-5.0); Sodium 139 mmol/L (137-145)
[2022-08-07 05:59] LABS: Iron 65 ug/dL (49-181)
[2022-08-07 06:01] LABS: Transferrin 160 mg/dL (206-381)
[2022-08-07 06:08] LABS: Anisocytosis 1+ (NORMAL); Ovalocytes 1+ (NORMAL); Platelet Estimate Adequate (Adequate)
[2022-08-07 06:12] LABS: Percent Iron Saturation 28 % (20-50)
[2022-08-07 06:38] LABS: Schistocytes None Seen (NORMAL)
[2022-08-07 06:54] LABS: Folic Acid 7.3 ng/mL (2.76->20)
--- NOTE | 2022-08-07 07:16 | WPDGIPROGNO ---
Progress Note: A&P Assessment and Plan (1) Blood loss anemia: Code(s): D50.0 - Iron deficiency anemia secondary to blood loss (chronic) Status: Acute Assessment and Plan: Stool was Hemoccult positive. Surprisingly MCV is elevated which suggests possible other factors. Who was scheduled for EGD and colonoscopy to be done tomorrow. (2) CKD (chronic kidney disease) stage 4, GFR 15-29 ml/min: Code(s): N18.4 - Chronic kidney disease, stage 4 (severe) Status: Acute Assessment and Plan: He is followed by Dr. Ted Quiroga. (3) Diabetes mellitus with hyperglycemia, with long-term current use of insulin: Qualifiers: Diabetes mellitus type: type 2 Qualified Code(s): E11.65 - Type 2 diabetes mellitus with hyperglycemia; Z79.4 - intermodal customer service (current) use of insulin Code(s): E11.65 - Type 2 diabetes mellitus with hyperglycemia; Z79.4 - skilled nursing (current) use of insulin Status: Acute Assessment and Plan: Blood sugar was over 380 on admission. He takes NovoLog insulin 70/30 have home (4) Chronic anticoagulation: Code(s): Z79.01 - skilled nursing (current) use of anticoagulants Status: Acute Assessment and Plan: on Eliquis at home. His last dose was Saturday. I will perform colonoscopy an EGD tomorrow after prep today Subjective Date/time seen: 08/07/22 07:16 he has had no discrete evidence of gastrointestinal bleeding. His hemoglobin remained stable. Denies abdominal pain, nausea, vomiting. He will be prepped for colonoscopy and EGD to be done tomorrow. Exam Const: General: alert Nutritional Appearance: obese Orientation/consciousness: patient oriented x3 Resp: Auscultation: clear to auscultation bilaterally Cardio: Rhythm: abnormal rhythm irregularly irregular GI: Inspection: obesity GI Palp: Yes Soft to palpation, No Tenderness to palpation present (GI) and Yes No hepatosplenomegaly present Auscultation: normal bowel sounds Neuro: General: patient oriented x3 Objective Data Vital Signs Vital Signs: Vital Signs - 24 hr 08/06/22 08:44 08/06/22 08:00 08/06/22 08:00 Temperature Pulse Rate 94 81 Respiratory Rate Blood Pressure Pulse Oximetry Oxygen Delivery Room Air Fraction of Inspired Oxygen 08/06/22 12:00 08/06/22 14:00 08/06/22 16:00 Temperature 36.6 C Pulse Rate 101 H 68 78 Respiratory Rate 18 Blood Pressure 116/71 Pulse Oximetry 100 Oxygen Delivery Fraction of Inspired Oxygen 08/06/22 20:07 08/06/22 20:44 08/06/22 20:44 Temperature 36.6 C Pulse Rate 90 82 Respiratory Rate 18 Blood Pressure 125/76 Pulse Oximetry 98 Oxygen Delivery Room Air Fraction of Inspired Oxygen 08/06/22 20:20 08/06/22 20:20 08/07/22 00:00 Temperature Pulse Rate 83 83 Respiratory Rate Blood Pressure Pulse Oximetry 98 98 Oxygen Delivery Room Air CPAP Fraction of Inspired Oxygen 21 08/07/22 03:17 08/07/22 04:00 08/07/22 05:57 Temperature 36.5 C Pulse Rate 84 82 74 Respiratory Rate 16 Blood Pressure 116/60 Pulse Oximetry 96 95 Oxygen Delivery Room Air Fraction of Inspired Oxygen Intake/Output Intake/Output: Intake & Output 08/04/22 08/05/22 08/06/22 08/07/22 23:59 23:59 23:59 23:59 Intake Total 2100 400 Output Total 450 Balance 1650 400 Meds/Results Medications: Active Medications Generic Name Dose Route Start Last Admin Trade Name Freq PRN Reason Stop Dose Admin Aspirin 81 mg 08/06/22 09:00 08/06/22 08:43 Aspirin 81 Mg Enteric Tablet PO 81 mg DAILY LIDA Administration Atorvastatin Calcium 10 mg 08/06/22 09:00 08/06/22 08:43 Atorvastatin 10 Mg Tablet PO 10 mg DAILY LIDA Administration Bisacodyl 10 mg 08/07/22 12:00 Bisacodyl 5 Mg Tablet Ec PO 08/07/22 21:01 1200,1500,2100 [facility] Collagenase 1 applic 08/06/22 09:00 08/06/22 08:43 Collagenase Oint 30 Gm Tube TOPICAL 1 applic D
--- NOTE | 2022-08-07 08:31 | PM.CNNEP ---
Assessment and Plan Assessment and plan (1) Dyspnea: Code(s): R06.00 - Dyspnea, unspecified Status: Acute Assessment and Plan: the patient has some shortness of breath with exertion. This could be multifactorial. His chest x-ray shows a small right pleural effusion but it does not seem to show enough fluid to call shortness of breath. he has significant anemia which could certainly cause some dyspnea. The patient has a worsened cardiomyopathy. His ejection fraction is lower than it had been. He has coronary disease as he has a positive stress test. This could also lead to some dyspnea. Dr. Mahoney is being consulted to give him some Epogen. This might help to improve the hemoglobin and lessen the symptoms. (2) CKD (chronic kidney disease) stage 4, GFR 15-29 ml/min: Code(s): N18.4 - Chronic kidney disease, stage 4 (severe) Status: Acute Assessment and Plan: The patient's baseline creatinine seems to be around 3.2. It is up above for now. The higher creatinine may be due to his anemia. I do not think he is dehydrated. there other causes as well including obstruction, or possibly even impression of chronic kidney disease. Will get an ultrasound of the kidneys, and also get urine electrolytes and a urinalysis. (3) Essential (primary) hypertension: Code(s): I10 - Essential (primary) hypertension Status: Acute Assessment and Plan: His blood pressure is under good control. He is on diltiazem, and metoprolol. perhaps with his cardiomyopathy he should be off the diltiazem, concentrate on metoprolol for rate control, and adjust meds further if he needs something for his blood pressure. (4) KENNEDY (obstructive sleep apnea): Code(s): G47.33 - Obstructive sleep apnea (adult) (pediatric) Status: Acute Assessment and Plan: He uses the CPAP machine religiously. (5) Chronic atrial fibrillation: Code(s): I48.20 - Chronic atrial fibrillation, unspecified Status: Acute Assessment and Plan: His heart rate is well controlled (6) Diabetes mellitus with hyperglycemia, with long-term current use of insulin: Qualifiers: Diabetes mellitus type: type 2 Qualified Code(s): E11.65 - Type 2 diabetes mellitus with hyperglycemia; Z79.4 - terminal manager (current) use of insulin Code(s): E11.65 - Type 2 diabetes mellitus with hyperglycemia; Z79.4 - senior care (current) use of insulin Status: Acute Assessment and Plan: he is on sliding-scale insulin and Accu-Cheks. Management per hospitalists. (7) Acute on chronic anemia: Code(s): D64.9 - Anemia, unspecified Status: Acute Assessment and Plan: he has chronic anemia due to chronic kidney disease. He has blood loss anemia with his black tarry stools as well. Will follow hemoglobin as we go. He will get Epogen from Dr. Mahoney (8) Chronic anticoagulation: Code(s): Z79.01 - terminal manager (current) use of anticoagulants Status: Acute Assessment and Plan: Eliquis is on hold (9) Renal osteodystrophy: Code(s): N25.0 - Renal osteodystrophy Status: Acute Assessment and Plan: will check a phosphorus level in the morning (10) Coronary artery disease: Code(s): I25.10 - Atherosclerotic heart disease of tribe coronary artery without angina pectoris Status: Acute Assessment and Plan: the patient had a positive stress test. Will and isosorbide mononitrate to the mix History of Present Illness Reason for Consult Consult date: 08/07/22 Chief Complaint Chief complaint: GI Bleed History of Present Illness Narrative: Humberto is a very pleasant 76-year-old gentleman who has multiple medical problems including chronic kidney disease stage 4 with a GFR in the high teens at baseline due to hypertension and diabetes, congestive heart failure with pulmonary hypertension, and multi
[2022-08-07 08:47] LABS: Glucose Point of Care 103 mg/dl (65-105)
[2022-08-07] MEDS: ASPIRIN 81 MG ENTERIC TABLET PO (08:58)
[2022-08-07] MEDS: COLLAGENASE OINT 30 GM TUBE 1 APPLIC TOPICAL (08:59)
[2022-08-07] MEDS: PANTOPRAZOLE SODIUM IV 40 MG VIAL IV PUSH ×2 (08:59→20:06)
[2022-08-07] MEDS: CHOLECALCIFEROL 1,000 UNITS TABLET 1000 UNITS PO (08:59)
[2022-08-07] MEDS: ATORVASTATIN 10 MG TABLET PO (08:59)
--- NOTE | 2022-08-07 09:45 | P.PNIM_ITS ---
Progress Note: A&P Assessment and Plan (1) Acute GI hemorrhage: Code(s): K92.2 - Gastrointestinal hemorrhage, unspecified Status: Acute Assessment and Plan: * Patient does have acute on chronic anemia * Current H/H is 8.4/26.3 * Occult blood was positive * Eliquis is on hold * Trend H/H Q6H * GI consulted thank you * Protonix 40mg PO Q12H * Colonoscopy scheduled for Saturday * Clear liquid diet (2) Chronic anticoagulation: Code(s): Z79.01 - intermediate (current) use of anticoagulants Status: Acute Assessment and Plan: * Eliquis on hold due to acute GI bleed. * Seems to be on this for a fib (3) Acute on chronic anemia: Code(s): D64.9 - Anemia, unspecified Status: Acute Assessment and Plan: * Current H/H is 8.4/26.3 * Seems to be a combination of acute on chronic anemia of chronic disease and acute blood loss * Add ferrous sulfate * Will get anemia labs in the am * Trend H/H * transfuse as indicated * Occult was positive * Consulting hematology (4) KENNEDY (obstructive sleep apnea): Code(s): G47.33 - Obstructive sleep apnea (adult) (pediatric) Status: Acute Assessment and Plan: Auto titrating CPAP has been ordered. (5) Diabetes mellitus with hyperglycemia, with long-term current use of insulin: Qualifiers: Diabetes mellitus type: type 2 Qualified Code(s): E11.65 - Type 2 diabetes mellitus with hyperglycemia; Z79.4 - medical terminologist (current) use of insulin Code(s): E11.65 - Type 2 diabetes mellitus with hyperglycemia; Z79.4 - intermediate (current) use of insulin Status: Acute Assessment and Plan: * Patient was hyperglycemic. He received 6 units subQ insulin due to glucoses of 380 in the ER. * Will place patient on moderate sliding scale insulin with Accu-Cheks q.6 hours while NPO. * Hypoglycemia protocol has been ordered. * Curretn glucose is 111 The patient is only on sliding scale insulin at home. (6) Chronic atrial fibrillation: Code(s): I48.20 - Chronic atrial fibrillation, unspecified Status: Acute Assessment and Plan: Currently rate controlled. Will continue home Cardizem and metoprolol. Eliquis is on hold. (7) Wound of foot: Code(s): S91.309A - Unspecified open wound, unspecified foot, initial encounter Status: Acute Assessment and Plan: Continue localized wound care. Wound does not appear to be infected. Patient does not have leukocytosis or evidence of infection. (8) Acute on chronic kidney failure: Code(s): N17.9 - Acute kidney failure, unspecified; N18.9 - Chronic kidney disease, unspecified Status: Acute Assessment and Plan: * Nephrology appointment in March it was suggested that the patient get a fistula placed soon as he is likely to need dialysis. * Has a vascular appointment on the * Current BUN/Cr is 96/4.10 * Nephrology consulted * Trend urine output * Avoid nephrotoxic medications * Trend labs * Adjust therapy as indicated Time Spent With Patient Time with patient: Greater than 35 minutes Subjective Date/time seen: 08/07/22944 Interval history: 08/07/22944 Patient stated he is doing okay today. He did indicate that he was
--- NOTE | 2022-08-07 09:45 | PM.IMPN ---
Progress Note: A&P Assessment and Plan (1) Acute GI hemorrhage: Code(s): K92.2 - Gastrointestinal hemorrhage, unspecified Status: Acute Assessment and Plan: Patient does have acute on chronic anemia Current H/H is 8.4/26.3 Occult blood was positive Eliquis is on hold Trend H/H Q6H GI consulted thank you Protonix 40mg PO Q12H Colonoscopy scheduled for Saturday Clear liquid diet (2) Chronic anticoagulation: Code(s): Z79.01 - skilled nursing (current) use of anticoagulants Status: Acute Assessment and Plan: Eliquis on hold due to acute GI bleed. Seems to be on this for a fib (3) Acute on chronic anemia: Code(s): D64.9 - Anemia, unspecified Status: Acute Assessment and Plan: Current H/H is 8.4/26.3 Seems to be a combination of acute on chronic anemia of chronic disease and acute blood loss Add ferrous sulfate Will get anemia labs in the am Trend H/H transfuse as indicated Occult was positive Consulting hematology (4) KENNEDY (obstructive sleep apnea): Code(s): G47.33 - Obstructive sleep apnea (adult) (pediatric) Status: Acute Assessment and Plan: Auto titrating CPAP has been ordered. (5) Diabetes mellitus with hyperglycemia, with long-term current use of insulin: Qualifiers: Diabetes mellitus type: type 2 Qualified Code(s): E11.65 - Type 2 diabetes mellitus with hyperglycemia; Z79.4 - skilled nursing (current) use of insulin Code(s): E11.65 - Type 2 diabetes mellitus with hyperglycemia; Z79.4 - skilled nursing (current) use of insulin Status: Acute Assessment and Plan: Patient was hyperglycemic. He received 6 units subQ insulin due to glucoses of [address] ER[address] Will place patient on moderate sliding scale insulin with Accu-Cheks q.6 hours while NPO. Hypoglycemia protocol has been ordered. Curretn glucose is 111 The patient is only on sliding scale insulin at home. (6) Chronic atrial fibrillation: Code(s): I48.20 - Chronic atrial fibrillation, unspecified Status: Acute Assessment and Plan: Currently rate controlled. Will continue home Cardizem and metoprolol. Eliquis is on hold. (7) Wound of foot: Code(s): S91.309A - Unspecified open wound, unspecified foot, initial encounter Status: Acute Assessment and Plan: Continue localized wound care. Wound does not appear to be infected. Patient does not have leukocytosis or evidence of infection. (8) Acute on chronic kidney failure: Code(s): N17.9 - Acute kidney failure, unspecified; N18.9 - Chronic kidney disease, unspecified Status: Acute Assessment and Plan: Nephrology appointment in March it was suggested that the patient get a fistula placed soon as he is likely to need dialysis. Has a vascular appointment on the Current BUN/Cr is 96/4.10 Nephrology consulted Trend urine output Avoid nephrotoxic medications Trend labs Adjust therapy as indicated Time Spent With Patient Time with patient: Greater than 35 minutes Subjective Date/time seen: 08/07/22944 Interval history: 08/07/22944 Patient stated he is doing okay today. He did indicate that he was kind of hungry due to the fact that he is on clear liquids for the colonoscopy tomorrow. He is also asked me about his iron which is 28 will add iron to his Mar. he denies any chest pain, shortness a breath, nausea, vomiting, diarrhea, constipation. Patient did state that he has not had a bowel movement since he has been here. BUN creatinine are elevated today at 96/4.10. Did consult Nephrology. I also consulted Oncology for the fact that he will probably need Procrit outpatient. 08/06/22 1200 Patient is doing ok. He is still very weak . H/H labs are stable at this time. He denies any chest pain, nausea, vomiting, diarrhe
[2022-08-07] MEDS: ISOSORBIDE MONONITRATE 30 MG TAB.ER.24H PO (09:53)
[2022-08-07] MEDS: BISACODYL 5 MG TABLET EC 10 MG PO ×3 (12:14→20:06)
[2022-08-07 12:28] LABS: Glucose Point of Care 153 mg/dl (65-105)
[2022-08-07 12:41] LABS: Add Urine Microscopic? YES; Appearance Urine Clear (Clear); Bilirubin Urine Negative (Negative); Blood Urine 1+ (Negative); Color Urine Yellow (Yellow); Glucose Urine UA 2+ mg/dL (Negative); Ketones Urine Negative (Negative); Leukocyte Esterase Ur Negative LEU/UL (NEGATIVE); Nitrate Urine Negative (Negative); Protein Urine Negative (Negative); Specific Grav Ur 1.014 (1.001-1.035); Urobilinogen Urine Negative mg/dL (<2.0); WBC Urine 0-3 /hpf (0-3)
[2022-08-07 12:53] LABS: Creatinine Urine 87.8 mg/dL; Total Protein Urine Random 11 mg/dL; Ur Ttl Prot Creatinine Ratio 0.13 mg/mg (0-0.20); Urea Random Urine 813 MG/DL
[2022-08-07 12:58] LABS: Sodium Urine Random 22 meq/L
[2022-08-07] MEDS: polyethylene glycoL 3350 238 GM BOTTLE PO (15:04)
[2022-08-07] MEDS: FERROUS SULFATE 324 MG TABLET PO (16:52)
[2022-08-07 17:44] LABS: Glucose Point of Care 325 mg/dl (65-105)
[2022-08-07] MEDS: INSULIN ASPART (*BKC) 100 UNITS/ML SUB-Q (17:49)
--- NOTE | 2022-08-07 19:28 | PDONCCN ---
HPI - Date of Consult Date/Time: 08/07/22 19:28 Requesting Physician: Norma Hanna DO Primary Care Provider: King Cast DO - Consult Narrative Reason for consult: Macrocytic anemia Narrative: Humberto Stallings is a 76 year old male with multiple comorbidities including atrial fibrillation, diabetic neuropathy, chronic kidney disease and type 2 diabetes came into the hospital with generalized weakness. He denies any fevers and chills. He denies any melena hematochezia. Hemoccult stool testing in the ER came back positive. He denies any previous systemic surgery. His last colonoscopy was more than 10 years ago. Labs showed hemoglobin of 7.6. Patient received 1 unit of packed red blood cell. Other labs showed normal iron level of 65 and normal vitamin B12 level of 685. Creatinine was 4.1. Reticulocyte count was slightly elevated. MCV was also elevated. Liver enzymes were normal. Review of Systems - Review of Systems All systems reviewed & are unremarkable except as noted in HPI and bel - Neurologic Reports system reviewed and no additional complaints, except as documented [facility] Medical History: Medical History (Last Updated 08/07/22 @ 08:40 by Ted Quiroga MD) Actinic keratosis of multiple sites of head and neck Allergic rhinitis, unspecified Amputation of left great toe Anemia of chronic disease B12 deficiency Body mass index (BMI) 35 or more Onset Date: 08/27/17 Cardiac murmur CHF (congestive heart failure) Echocardiogram 07/2020: [id number] increased left ventricular wall thickness, left ventricular ejection fraction 40-50%, indeterminate diastolic function due to AFib, mild-moderate left atrial dilatation, mild tricuspid regurgitation, mild pulmonary hypertension Chronic anticoagulation Chronic atrial fibrillation Dr. Mckeon CKD (chronic kidney disease) stage 4, GFR 15-29 ml/min Due to diabetes and hypertension managed by Dr. Ted Quiroga Coronary artery disease Diabetic peripheral neuropathy Diabetic retinopathy Mild nonproliferative of retinopathy with history of laser surgery left eye Dyspnea Essential (primary) hypertension Gangrene of toe of left foot Onset Date: ~11/2021 Gout Hearing loss Macular scar of right eye With biomass technician stating cataract surgery would not help patient's vision due to macular scar Obesity, morbid, BMI 40.0-49.9 KENNEDY (obstructive sleep apnea) Peripheral artery disease Positive cardiac stress test 06/2020 with ischemia to the anterior area demonstrate EF of 42%. Left heart catheterization not performed due to chronic kidney disease. Renal osteodystrophy Secondary hyperparathyroidism (of renal origin) With mildly elevated PTH Spinal stenosis Type 2 diabetes mellitus Improved to an A1c of 7.4% March 2022 Vitamin D deficiency Surgical History: Surgical History (Last Reviewed 08/07/22 @ 08:38 by Ted Quiroga MD) Amputated toe Left 1st toe amputation and left 3rd and 4th toe ulcer debridement 02/2022 History of angioplasty of peripheral vessel Onset Date: ~02/2022 With stent in the left superficial femoral artery performed by Dr. Meadows History of left cataract extraction History of surgical procedure on eye proper using laser Normal colonoscopy Demonstrating internal hemorrhoids. Performed by Dr. Morgan August 2013 Family History: Family History (Last Reviewed 08/07/22 @ 08:38 by Ted Quiroga MD) Father Heart disease Diabetes mellitus Daughter Breast cancer - Social History Social History: Social History (Last Reviewed 08/07/22 @ 08:38 by Ted Quiroga MD) Gender Identity: Gender identity (if verbalized by the patient): Male Alcohol Use: Alcohol intake: never Alcohol use details: socially Substance Use: Substance use: never Others: Spiritual care concerns: No Smoking Status: Smoking status: Never smoker Second hand tobacco smoke exposu
[2022-08-07 20:40] LABS: Lactate Dehydrogenase 167 U/L (120-246)
[2022-08-07] MEDS: EPOETIN ALFA-EPBX 20,000 UNITS/ML VIAL 20000 UNITS SUB-Q (21:22)
[2022-08-07 21:35] LABS: Glucose Point of Care 223 mg/dl (65-105)
[2022-08-08] VITALS (15 sets, daily range): BP systolic 92–120; BP diastolic 50–96; PULSE 51–119; RESP 16–21; TEMP 36.2–36.7; O2SAT 98–100
[2022-08-08 05:29] LABS: Basophils Percent Auto 0.6 % (0.2-1.2); Eosinophils Absolute Auto 0.2 K/mm3 (0-0.3); Eosinophils Percent Auto 3.7 % (0-4.4); Hematocrit 24.6 % (42.0-52.0); Immature Granulocyte Absolute 0.06 K/mm3 (0.00-0.031); Lymphocytes Absolute Auto 0.68 K/mm3 (0.9-3.2); Lymphocytes Percent Auto 10.8 % (18.3-44.2); Mean Corpuscular HGB Conc 32.5 g/dl (32-36); Mean Corpuscular Hemoglobin 35.4 pg (26-34); Mean Corpuscular Volume 108.8 fl (80-100); Mean Platelet Volume 11.3 fl (7.4-10.4); Monocytes Absolute Auto 0.5 K/mm3 (0.1-0.6); Monocytes Percent Auto 8.1 % (2.6-8.5); Neutrophils Absolute Auto 4.8 K/mm3 (1.3-6.7); Neutrophils Percent Auto 75.8 % (45.5-73.1); Nucleated Red Blood Cells Perc 0.3 % (0.0-0.2); Platelet Count Result 153 k/mm3 (150-375); Red Blood Count 2.26 M/mm3 (4.6-6.20); Red Cell Distribution Width 14.6 % (11.5-14.5); White Blood Count 6.3 K/mm3 (4.5-10.0)
[2022-08-08 05:38] LABS: Alanine Aminotransferase 26 U/L (6-50); Albumin Level 3.5 g/dL (3.5-5.1); Alkaline Phosphatase 84 U/L (38-126); Anion Gap 10 mmol/L (8-16); Aspartate Amino Transferase 23 U/L (17-59); Bilirubin,Total 1.2 mg/dL (0.2-1.3); Blood Urea Nitrogen 89 mg/dL (9-20); Calcium 7.7 mg/dL (8.4-10.2); Carbon Dioxide 22 mmol/L (22-30); Chloride 103 mmol/L (98-107); Estimated CRCL calculation 23 ml/min; Estimated Glomerular Filt Rate 15; Glucose 134 mg/dL (65-110); Magnesium 2.5 mg/dL (1.6-2.3); Phosphorus 5.1 mg/dL (2.5-4.5); Sodium 135 mmol/L (137-145)
[2022-08-08 06:02] LABS: Anisocytosis 1+ (NORMAL); Ovalocytes 1+ (NORMAL); Platelet Estimate Adequate (Adequate); Schistocytes None Seen (NORMAL)
--- NOTE | 2022-08-08 06:41 | P.PNIM_ITS ---
Progress Note: A&P Assessment and Plan (1) Acute GI hemorrhage: Code(s): K92.2 - Gastrointestinal hemorrhage, unspecified Status: Acute Assessment and Plan: * Patient does have acute on chronic anemia * Current H/H is 8.0/24.6 * Occult blood was positive * Eliquis is on hold * GI consulted thank you * Protonix 40mg PO Q12H * Colonoscopy scheduled for today * NPO (2) Chronic anticoagulation: Code(s): Z79.01 - termite control service representative (current) use of anticoagulants Status: Acute Assessment and Plan: * Eliquis on hold due to acute GI bleed. * Seems to be on this for a fib (3) Acute on chronic anemia: Code(s): D64.9 - Anemia, unspecified Status: Acute Assessment and Plan: * Current H/H is 8.0/24.6 * Seems to be a combination of acute on chronic anemia of chronic disease and acute blood loss * Add ferrous sulfate * Will get anemia labs in the am * Trend H/H * transfuse as indicated * Occult was positive * Consulting hematology (4) KENNEDY (obstructive sleep apnea): Code(s): G47.33 - Obstructive sleep apnea (adult) (pediatric) Status: Acute Assessment and Plan: * Auto titrating CPAP has been ordered. (5) Diabetes mellitus with hyperglycemia, with long-term current use of insulin: Qualifiers: Diabetes mellitus type: type 2 Qualified Code(s): E11.65 - Type 2 diabetes mellitus with hyperglycemia; Z79.4 - MCC (current) use of insulin Code(s): E11.65 - Type 2 diabetes mellitus with hyperglycemia; Z79.4 - termite control service representative (current) use of insulin Status: Acute Assessment and Plan: * Patient was hyperglycemic. He received 6 units subQ insulin due to glucoses of 380 in the ER. * Will place patient on moderate sliding scale insulin with Accu-Cheks q.6 hours while NPO. * Hypoglycemia protocol has been ordered. * Curretn glucose is 134 The patient is only on sliding scale insulin at home. (6) Chronic atrial fibrillation: Code(s): I48.20 - Chronic atrial fibrillation, unspecified Status: Acute Assessment and Plan: * Currently rate controlled. Will continue home Cardizem and metoprolol. Eliquis is on hold. (7) Wound of foot: Code(s): S91.309A - Unspecified open wound, unspecified foot, initial encounter Status: Acute Assessment and Plan: * Continue localized wound care. * Wound does not appear to be infected. * Patient does not have leukocytosis or evidence of infection. (8) Acute on chronic kidney failure: Code(s): N17.9 - Acute kidney failure, unspecified; N18.9 - Chronic kidney disease, unspecified Status: Acute Assessment and Plan: * Nephrology appointment in March it was suggested that the patient get a fistula placed soon as he is likely to need dialysis. * Has a vascular appointment on the * Current BUN/Cr is 89/3.90 * Nephrology consulted * Trend urine output * Avoid nephrotoxic medications * Trend labs * Adjust therapy as indicated Time Spent With Patient Time with patient: Greater than 35 minutes Subjective Date/time seen: 08/08/22 06:41 Interval history: 08/08/22 08/07/22 6381 Patient stated he is doing okay today. He did
--- NOTE | 2022-08-08 06:41 | PM.IMPN ---
Progress Note: A&P Assessment and Plan (1) Acute GI hemorrhage: Code(s): K92.2 - Gastrointestinal hemorrhage, unspecified Status: Acute Assessment and Plan: Patient does have acute on chronic anemia Current H/H is 8.0/24.6 Occult blood was positive Eliquis is on hold GI consulted thank you Protonix 40mg PO Q12H Colonoscopy scheduled for today NPO (2) Chronic anticoagulation: Code(s): Z79.01 - buttermilk drier operator (current) use of anticoagulants Status: Acute Assessment and Plan: Eliquis on hold due to acute GI bleed. Seems to be on this for a fib (3) Acute on chronic anemia: Code(s): D64.9 - Anemia, unspecified Status: Acute Assessment and Plan: Current H/H is 8.0/24.6 Seems to be a combination of acute on chronic anemia of chronic disease and acute blood loss Add ferrous sulfate Will get anemia labs in the am Trend H/H transfuse as indicated Occult was positive Consulting hematology (4) KENNEDY (obstructive sleep apnea): Code(s): G47.33 - Obstructive sleep apnea (adult) (pediatric) Status: Acute Assessment and Plan: Auto titrating CPAP has been ordered. (5) Diabetes mellitus with hyperglycemia, with long-term current use of insulin: Qualifiers: Diabetes mellitus type: type 2 Qualified Code(s): E11.65 - Type 2 diabetes mellitus with hyperglycemia; Z79.4 - buttermilk drier operator (current) use of insulin Code(s): E11.65 - Type 2 diabetes mellitus with hyperglycemia; Z79.4 - buttermilk drier operator (current) use of insulin Status: Acute Assessment and Plan: Patient was hyperglycemic. He received 6 units subQ insulin due to glucoses of [address] the ER[address] Will place patient on moderate sliding scale insulin with Accu-Cheks q.6 hours while NPO. Hypoglycemia protocol has been ordered. Curretn glucose is 134 The patient is only on sliding scale insulin at home. (6) Chronic atrial fibrillation: Code(s): I48.20 - Chronic atrial fibrillation, unspecified Status: Acute Assessment and Plan: Currently rate controlled. Will continue home Cardizem and metoprolol. Eliquis is on hold. (7) Wound of foot: Code(s): S91.309A - Unspecified open wound, unspecified foot, initial encounter Status: Acute Assessment and Plan: Continue localized wound care. Wound does not appear to be infected. Patient does not have leukocytosis or evidence of infection. (8) Acute on chronic kidney failure: Code(s): N17.9 - Acute kidney failure, unspecified; N18.9 - Chronic kidney disease, unspecified Status: Acute Assessment and Plan: Nephrology appointment in March it was suggested that the patient get a fistula placed soon as he is likely to need dialysis. Has a vascular appointment on the Current BUN/Cr is 89/3.90 Nephrology consulted Trend urine output Avoid nephrotoxic medications Trend labs Adjust therapy as indicated Time Spent With Patient Time with patient: Greater than 35 minutes Subjective Date/time seen: 08/08/22 06:41 Interval history: 08/08/22 08/07/22 0945 Patient stated he is doing okay today. He did indicate that he was kind of hungry due to the fact that he is on clear liquids for the colonoscopy tomorrow. He is also asked me about his iron which is 28 will add iron to his Mar. he denies any chest pain, shortness a breath, nausea, vomiting, diarrhea, constipation. Patient did state that he has not had a bowel movement since he has been here. BUN creatinine are elevated today at 96/4.10. Did consult Nephrology. I also consulted Oncology for the fact that he will probably need Procrit outpatient. 08/06/22 1200 Patient is doing ok. He is still very weak . H/H labs are stable at this time. He denies any chest pain, nausea, vomiting, diarrhea, or
--- NOTE | 2022-08-08 07:32 | PM.PNNEP ---
Progress Note: A&P Assessment and Plan (1) Dyspnea: Code(s): R06.00 - Dyspnea, unspecified Status: Acute Assessment and Plan: the patient has some shortness of breath with exertion. This could be multifactorial. His chest x-ray shows a small right pleural effusion but it does not seem to show enough fluid to call shortness of breath. he has significant anemia which could certainly cause some dyspnea. The patient has a worsened cardiomyopathy. His ejection fraction is lower than it had been. He has coronary disease as he has a positive stress test. This could also lead to some dyspnea. Dr. Mahoney is being consulted to give him some Epogen. This might help to improve the hemoglobin and lessen the symptoms. (2) CKD (chronic kidney disease) stage 4, GFR 15-29 ml/min: Code(s): N18.4 - Chronic kidney disease, stage 4 (severe) Status: Acute Assessment and Plan: The patient's baseline creatinine seems to be around 3.2. this is due to diabetes and hypertension. His creatinine was higher on admission but has improved overnight. urine electrolytes show pre renal azotemia. This is most likely due to his anemia. (3) Essential (primary) hypertension: Code(s): I10 - Essential (primary) hypertension Status: Acute Assessment and Plan: His blood pressure is under good control. He is on only metoprolol. (4) KENNEDY (obstructive sleep apnea): Code(s): G47.33 - Obstructive sleep apnea (adult) (pediatric) Status: Acute Assessment and Plan: He uses the CPAP machine religiously. (5) Chronic atrial fibrillation: Code(s): I48.20 - Chronic atrial fibrillation, unspecified Status: Acute Assessment and Plan: His heart rate is well controlled (6) Diabetes mellitus with hyperglycemia, with long-term current use of insulin: Qualifiers: Diabetes mellitus type: type 2 Qualified Code(s): E11.65 - Type 2 diabetes mellitus with hyperglycemia; Z79.4 - FDC (current) use of insulin Code(s): E11.65 - Type 2 diabetes mellitus with hyperglycemia; Z79.4 - FDC (current) use of insulin Status: Acute Assessment and Plan: he is on sliding-scale insulin and Accu-Cheks. Management per hospitalists. (7) Acute on chronic anemia: Code(s): D64.9 - Anemia, unspecified Status: Acute Assessment and Plan: he has chronic anemia due to chronic kidney disease. He has blood loss anemia with his black tarry stools as well. Will follow hemoglobin as we go. He will get Epogen from Dr. Mhaoney Colonoscopy showed internal hemorrhoids and polyps. EGD showed NERD. (8) Chronic anticoagulation: Code(s): Z79.01 - FDC (current) use of anticoagulants Status: Acute Assessment and Plan: Eliquis is on hold (9) Renal osteodystrophy: Code(s): N25.0 - Renal osteodystrophy Status: Acute Assessment and Plan: phosphorus is pretty good at 5.1. (10) Coronary artery disease: Code(s): I25.10 - Atherosclerotic heart disease of [place] coronary artery without angina pectoris Status: Acute Assessment and Plan: the patient had a positive stress test. Will and isosorbide mononitrate to the mix Subjective Date/time seen: 08/08/22 7:30 Interval history: Mr Stallings is feeling better today. He slept pretty well last night. He feels somewhat chromium because he hates being in the hospital. No chest pain or shortness of breath Review of Systems Cardiovascular: Cardiovascular: Reports no additional cardiovascular complaints Respiratory: Respiratory: Reports no additional respiratory complaints Gastrointestinal: Gastrointestinal: Reports no additional gastrointestinal complaints Genitourinary: Genitourinary: Reports no additional male genitourinary complaints Exam Narrative: WDWN in NAD skin no rash
--- NOTE | 2022-08-08 08:32 | WPDANESEPPF ---
Anes - Initial Pre Proc Eval Procedure: Operation Date: 08/08/22 14:30 Proposed Procedures p Esophagogastroduodenoscopy & Colonoscopy - Ahsan Hackett MD Date/Time: 08/08/22 08:32 Surgeon: Norma Hanna DO Pre Op Diagnosis: GI Bleed Patient Data Age: 76 Gender: M Height: 1.83 m Weight: 151.8 kg Last Vital Signs Temp 98.1 F 08/08/22 06:32 Pulse 77 08/08/22 06:32 Resp 16 08/08/22 06:32 BP 119/78 08/08/22 06:32 Pulse Ox 98 08/08/22 06:32 O2 Del Method Room Air 08/08/22 02:49 FiO2 21 08/06/22 20:20 Allergies Allergy/AdvReac Type Severity Reaction Status Date / Time No Known Allergies Allergy Verified 08/05/22 18:10 Home Medications Medication Instructions Recorded Confirmed Type aspirin 81 mg tablet,delayed 81 mg PO DAILY 12/01/19 08/05/22 History release (Adult Low Dose Aspirin) cholecalciferol (vitamin D3) 25 1,000 unit PO DAILY 12/01/19 08/05/22 History mcg (1,000 unit) capsule diltiazem HCl 120 mg 120 mg PO DAILY 12/13/20 08/05/22 History capsule,extended release 12 hr blood-glucose meter (OneTouch #1 ea 05/05/21 08/05/22 Rx Verio Flex Meter) lancets (OneTouch UltraSoft #100 ea 05/05/21 08/05/22 Rx Lancets) flash glucose scanning reader #1 ea 10/02/21 08/05/22 Rx (FreeStyle Abigail 2 [place]) flash glucose sensor (FreeStyle #3 ea 10/02/21 08/05/22 Rx Abigail 2 Sensor kit) blood sugar diagnostic (OneTouch #100 ea 10/29/21 08/05/22 Rx Verio test strips) apixaban 2.5 mg tablet (Eliquis) 2.5 mg PO BID #60 tabs 02/26/22 08/05/22 Rx furosemide 40 mg tablet 40 mg PO QAM #90 tabs 03/20/22 08/05/22 Rx metoprolol succinate 100 mg 100 mg PO DAILY #90 tabs 03/20/22 08/05/22 Rx tablet,extended release 24 hr atorvastatin 10 mg tablet 10 mg PO DAILY 90 days #90 tabs 03/29/22 08/05/22 Rx pen needle, diabetic 32 gauge x #200 ea 03/29/22 08/05/22 Rx 5/32 (BD Ultra-Fine Kailyn Pen Needle) clindamycin HCl 300 mg capsule 300 mg PO TID 08/05/22 08/05/22 History collagenase clostridium histo. 250 1 applic topical DAILY 08/05/22 08/05/22 History unit/gram topical ointment (Santyl) insulin aspar prot-insulin aspart 20 unit subcut QAM 08/05/22 08/05/22 History 100 unit/mL (70-30) subcutaneous pen (Novolog Mix 70-30FlexPen U-100) Laboratory Tests 08/07/22 08/07/22 08/07/22 08:34 12:04 12:13 WBC RBC Hgb Hct MCV MCH MCHC RDW Plt Count MPV Immature Gran % (Auto) Neut % (Auto) Lymph % (Auto) [place] % (Auto) Eos % (Auto) Baso % (Auto) Lymph # (Auto) [place] # (Auto) Eos # (Auto) Baso # (Auto) Abs Immat Gran (auto) Absolute Neuts (auto) Absolute Nucleated RBC Nucleated RBC % Platelet Estimate Anisocytosis Ovalocytes Schistocytes Haptoglobin Sodium Potassium Chloride Carbon Dioxide Anion Gap BUN Creatinine Estim Creat Clear Calc Estimated GFR Glucose POC Capillary Glucose 103 mg/dl mg/dl 153 mg/dl H mg/dl (65-105) (65-105) Calcium Phosphorus Magnesium Total Bilirubin AST ALT Alkaline Phosphatase Lactate Dehydrogenase Total Protein Albumin Methylmalonic Acid Urine Color Yellow (Yellow) Urine Appearance Clear (Clear) Urine pH 5.0 (5.0-9.0) Ur Specific [place] 1.014 (1.001-1.035) Urine Protein Negative mg/dL mg/dL (Negative) Urine Glucose (UA) 2+ mg/dL H m
[2022-08-08] MEDS: LACTATED RINGERS 1,000 ML 150 ML IV CONT (08:40)
[2022-08-08 08:42] LABS: Glucose Point of Care 148 mg/dl (65-105)
--- NOTE | 2022-08-08 09:32 | SUR.OPER ---
EGD START 909, END 911 COLONOSCOPY START 918, END 928
[2022-08-08 10:03] LABS: Glucose Point of Care 151 mg/dl (65-105)
[2022-08-08 10:14] LABS: Glucose Point of Care 156 mg/dl (65-105)
[2022-08-08] MEDS: CHOLECALCIFEROL 1,000 UNITS TABLET 1000 UNITS PO (10:18)
[2022-08-08] MEDS: ASPIRIN 81 MG ENTERIC TABLET PO (10:18)
[2022-08-08] MEDS: ATORVASTATIN 10 MG TABLET PO (10:18)
[2022-08-08] MEDS: FERROUS SULFATE 324 MG TABLET PO ×2 (10:19→17:50)
[2022-08-08] MEDS: COLLAGENASE OINT 30 GM TUBE 1 APPLIC TOPICAL (10:20)
[2022-08-08] MEDS: PANTOPRAZOLE SODIUM IV 40 MG VIAL IV PUSH (10:20)
[2022-08-08] MEDS: METOPROLOL SUCCINATE EXT REL 100 MG TABCR PO (10:20)
--- NOTE | 2022-08-08 10:37 | SUR.PHASEII ---
H pylori positive Dr. Hackett notified. No new orders received.
[2022-08-08 12:05] LABS: Glucose Point of Care 185 mg/dl (65-105)
--- NOTE | 2022-08-08 14:30 | P.DS_ITS ---
DS: Admitting Diagnosis Discharge Date 08/08/22 1430 Admitting Diagnosis GI bleed, acute on chronic anemia, acute on chronic kidney failure DS: Discharge Diagnosis Discharge Diagnosis (1) Acute GI hemorrhage: Code(s): K92.2 - Gastrointestinal hemorrhage, unspecified Status: Acute Assessment and Plan: * Patient does have acute on chronic anemia * Current H/H is 8.0/24.6 * Occult blood was positive * Eliquis is on hold * GI consulted thank you * Protonix 40mg PO Q12H * Colonoscopy an EGD neither 1 showed any bleeding * Painter was found on the EGD * Patient was able tolerate a regular diet (2) Chronic anticoagulation: Code(s): Z79.01 - nursing home (current) use of anticoagulants Status: Acute Assessment and Plan: * Eliquis on hold due to acute GI bleed. * Seems to be on this for a fib * Okay to resume on Saturday (3) Acute on chronic anemia: Code(s): D64.9 - Anemia, unspecified Status: Acute Assessment and Plan: * Current H/H is 8.0/24.6 * Seems to be a combination of acute on chronic anemia of chronic disease and acute blood loss * Add ferrous sulfate * Will get anemia labs in the am * Trend H/H * transfuse as indicated * Occult was positive * Consulting hematology (4) KENNEDY (obstructive sleep apnea): Code(s): G47.33 - Obstructive sleep apnea (adult) (pediatric) Status: Acute Assessment and Plan: * Auto titrating CPAP has been ordered. (5) Diabetes mellitus with hyperglycemia, with long-term current use of insulin: Qualifiers: Diabetes mellitus type: type 2 Qualified Code(s): E11.65 - Type 2 diabetes mellitus with hyperglycemia; Z79.4 - nursing home (current) use of insulin Code(s): E11.65 - Type 2 diabetes mellitus with hyperglycemia; Z79.4 - extermination supervisor (current) use of insulin Status: Acute Assessment and Plan: * Patient was hyperglycemic. He received 6 units subQ insulin due to glucoses of 380 in the ER. * Will place patient on moderate sliding scale insulin with Accu-Cheks q.6 hours while NPO. * Hypoglycemia protocol has been ordered. * Curretn glucose is 134 The patient is only on sliding scale insulin at home. (6) Chronic atrial fibrillation: Code(s): I48.20 - Chronic atrial fibrillation, unspecified Status: Acute Assessment and Plan: * Currently rate controlled. Will continue home Cardizem and metoprolol. Eliquis is on hold. (7) Wound of foot: Code(s): S91.309A - Unspecified open wound, unspecified foot, initial encounter Status: Acute Assessment and Plan: * Continue localized wound care. * Wound does not appear to be infected. * Patient does not have leukocytosis or evidence of infection. (8) Acute on chronic kidney failure: Code(s): N17.9 - Acute kidney failure, unspecified; N18.9 - Chronic kidney disease, unspecified Status: Acute Assessment and Plan: * Nephrology appointment in March it was suggested that the patient get a fistula placed soon as he is likely to need dialysis. * Has a vascular appointment on the * Current BUN/Cr is 89/3.90 * Nephrology consulted * Trend urine output * Avoid nephrotoxic medications * Trend labs * Adjust therapy as indicated
--- NOTE | 2022-08-08 14:30 | PM.DS ---
DS: Admitting Diagnosis Discharge Date 08/08/22 1430 Admitting Diagnosis GI bleed, acute on chronic anemia, acute on chronic kidney failure DS: Discharge Diagnosis Discharge Diagnosis (1) Acute GI hemorrhage: Code(s): K92.2 - Gastrointestinal hemorrhage, unspecified Status: Acute Assessment and Plan: Patient does have acute on chronic anemia Current H/H is 8.0/24.6 Occult blood was positive Eliquis is on hold GI consulted thank you Protonix 40mg PO Q12H Colonoscopy an EGD neither 1 showed any bleeding Paniter was found on the EGD Patient was able tolerate a regular diet (2) Chronic anticoagulation: Code(s): Z79.01 - shelter (current) use of anticoagulants Status: Acute Assessment and Plan: Eliquis on hold due to acute GI bleed. Seems to be on this for a fib Okay to resume on Saturday (3) Acute on chronic anemia: Code(s): D64.9 - Anemia, unspecified Status: Acute Assessment and Plan: Current H/H is 8.0/24.6 Seems to be a combination of acute on chronic anemia of chronic disease and acute blood loss Add ferrous sulfate Will get anemia labs in the am Trend H/H transfuse as indicated Occult was positive Consulting hematology (4) KENNEDY (obstructive sleep apnea): Code(s): G47.33 - Obstructive sleep apnea (adult) (pediatric) Status: Acute Assessment and Plan: Auto titrating CPAP has been ordered. (5) Diabetes mellitus with hyperglycemia, with long-term current use of insulin: Qualifiers: Diabetes mellitus type: type 2 Qualified Code(s): E11.65 - Type 2 diabetes mellitus with hyperglycemia; Z79.4 - computer terminal operator (current) use of insulin Code(s): E11.65 - Type 2 diabetes mellitus with hyperglycemia; Z79.4 - computer terminal operator (current) use of insulin Status: Acute Assessment and Plan: Patient was hyperglycemic. He received 6 units subQ insulin due to glucoses of [address] in [address] ER[address] place patient on moderate sliding scale insulin with Accu-Cheks q.6 hours while NPO. Hypoglycemia protocol has been ordered. Curretn glucose is 134 The patient is only on sliding scale insulin at home. (6) Chronic atrial fibrillation: Code(s): I48.20 - Chronic atrial fibrillation, unspecified Status: Acute Assessment and Plan: Currently rate controlled. Will continue home Cardizem and metoprolol. Eliquis is on hold. (7) Wound of foot: Code(s): S91.309A - Unspecified open wound, unspecified foot, initial encounter Status: Acute Assessment and Plan: Continue localized wound care. Wound does not appear to be infected. Patient does not have leukocytosis or evidence of infection. (8) Acute on chronic kidney failure: Code(s): N17.9 - Acute kidney failure, unspecified; N18.9 - Chronic kidney disease, unspecified Status: Acute Assessment and Plan: Nephrology appointment in March it was suggested that the patient get a fistula placed soon as he is likely to need dialysis. Has a vascular appointment on the Current BUN/Cr is 89/3.90 Nephrology consulted Trend urine output Avoid nephrotoxic medications Trend labs Adjust therapy as indicated DS: Summary Hospital Course Hospital Course: Patient is a 76-year-old male with a past medical history of peripheral arterial disease, diabetes, chronic kidney disease, chronic AFib who presented to the ED due to high blood sugars and generalized weakness. Is reported that for the last couple days prior to admission patient was having black stools. Patient was also becoming very weak. It was noted the patient could not even walk 10 ft without getting short of breath. Upon arrival it was noted that patient did have a hemoglobin of 7.8. Patient did receive 1 unit of packed red blood cells. Anemia labs did indica
[2022-08-08] MEDS: AMOXICILLIN 500 MG CAPSULE 1000 MG PO (17:50)
[2022-08-08 17:51] LABS: Glucose Point of Care 241 mg/dl (65-105)
[2022-08-08] MEDS: INSULIN ASPART (*BKC) 100 UNITS/ML SUB-Q (17:56)
[2022-08-12 07:35] LABS: Methylmalonic Acid 524 nmol/L (87-318)
[2022-08-14 12:13] LABS: Haptoglobin 124 mg/dL (43-212)
== END 2022-08-08 18:41 | disposition home or self-care (01) ==
LOC: ANHED 18:59 → ANH2MED 21:26
PROVIDERS: Emergency Medicine; Internal Medicine Gastroenterology; Internal Medicine Hematology & Oncology; Internal Medicine Nephrology; Nurse Practitioner; Admitting Provider Internal Medicine; Emergency Provider Emergency Medicine; PCP Internal Medicine; Visit Provider Internal Medicine
PROC: 0DJ08ZZ Inspection of Upper Intestinal Tract, Via Natural or Artificial Opening Endoscopic (ICD-10-PCS; CPT 43235; principal; 2022-08-08 14:30)
DX: K92.2 Gastrointestinal hemorrhage, unspecified (principal); D62 Acute posthemorrhagic anemia; K21.9 Gastro-esophageal reflux disease without esophagitis; K64.8 Other hemorrhoids; D12.4 Benign neoplasm of descending colon; D12.3 Benign neoplasm of transverse colon; G47.33 Obstructive sleep apnea (adult) (pediatric); R19.5 Other fecal abnormalities; D63.1 Anemia in chronic kidney disease; E11.65 Type 2 diabetes mellitus with hyperglycemia; S91.309A Unspecified open wound, unspecified foot, initial encounter; Z23 Encounter for immunization; I48.20 Chronic atrial fibrillation, unspecified; Z20.822 Contact with and (suspected) exposure to COVID-19; J90 Pleural effusion, not elsewhere classified; I13.0 Hypertensive heart and chronic kidney disease with heart failure and stage 1 through stage 4 chronic kidney disease, or unspecified chronic kidney disease; E11.22 Type 2 diabetes mellitus with diabetic chronic kidney disease; N18.4 Chronic kidney disease, stage 4 (severe); I50.30 Unspecified diastolic (congestive) heart failure; E53.8 Deficiency of other specified B group vitamins; R06.02 Shortness of breath; N17.9 Acute kidney failure, unspecified; I25.10 Atherosclerotic heart disease of native coronary artery without angina pectoris; E11.42 Type 2 diabetes mellitus with diabetic polyneuropathy; E11.319 Type 2 diabetes mellitus with unspecified diabetic retinopathy without macular edema; Z89.412 Acquired absence of left great toe; M10.9 Gout, unspecified; E66.01 Morbid (severe) obesity due to excess calories; Z68.42 Body mass index [BMI] 45.0-49.9, adult; N25.0 Renal osteodystrophy; N25.81 Secondary hyperparathyroidism of renal origin; R53.1 Weakness; E55.9 Vitamin D deficiency, unspecified; Z95.820 Peripheral vascular angioplasty status with implants and grafts; E11.51 Type 2 diabetes mellitus with diabetic peripheral angiopathy without gangrene; K75.81 Nonalcoholic steatohepatitis (NASH); Z79.82 Long term (current) use of aspirin; Z79.4 Long term (current) use of insulin; Z79.01 Long term (current) use of anticoagulants; Z79.899 Other long term (current) drug therapy; Z83.3 Family history of diabetes mellitus; Z82.49 Family history of ischemic heart disease and other diseases of the circulatory system; Z84.89 Family history of other specified conditions
CPT/HCPCS: 43239; 45385; 45380; 36415; 36430; 71046; 76775; 80048; 80053; 81001; 82570; 82607; 82728; 82746; 82948; 83010; 83540; 83550; 83615; 83735; 83921; 84100; 84156; 84300; 84466; 84540; 85014; 85018; 85025; 85027; 85046; 86850; 86880; 86900; 86901; 86920; 87081; 87502; 88305; 90471; 90694; 93005; 93306; 93971; 96372; 96374; 96375; 96376; 99285; A9270; C9113; C9803; G0008; G0378; J1815; J1940; J2704; J7040; J7050; J7120; P9016; Q5105; U0003; U0005